=== PATIENT | male | born 1970 | race Caucasian/White ===

== ENCOUNTER 2016-12-26 14:33 | Emergency (ER) | payer MEDICAID ==
[2016-12-26] MEDS ORDERED: NAPROXEN 250 MG TABLET PO ONE (16:03)
--- NOTE | 2016-12-26 16:05 | ER Document Report ---
HPI - HPI Patient complains to provider of: wrist pain, leg wound Onset: Other - wrist x 4 days, leg wound x 1 month Onset/Duration: Persistent Quality of pain: Stabbing Pain Level: 4 Context: Patient presents complaining of bilateral wrist pain for the past 4 days that he states is similar to when he has had problems with carpal tunnel in the past. Patient denies any wrist injury. Patient also states that he cut his left lower extremity after a board bounce back hitting him in the leg one month ago. Patient states he has been cleaning the wound with peroxide and dressing it with Neosporin. Patient states that the wound has been slow to heal. Patient denies any fever or history of diabetes. Associated Symptoms: Other - wrist pain. denies: Fever Exacerbated by: Movement Relieved by: Denies Similar symptoms previously: Yes - carpal tunnel Recently seen / treated by doctor: No - ROS ROS below otherwise negative: Yes Systems Reviewed and Negative: Yes All other systems reviewed and negative - CONSTITUTIONAL Constitutional: DENIES: Fever, Chills - NEURO Neurology: DENIES: Weakness - MUSCULOSKELETAL Musculoskeletal: REPORTS: Extremity pain - bilat wrist - DERM Skin Color: Normal Notes: wound to left leg Past Medical History - General Information source: Patient - Social History Smoking Status: Current Every Day Smoker Frequency of alcohol use: None Drug Abuse: None 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 IN LAST 30 DAYS: No - HEENT HEENT: Atraumatic - NECK Neck: Normal Inspection - RESPIRATORY Respiratory: Breath Sounds Normal, No Respiratory Distress - CARDIOVASCULAR Cardiovascular: Regular Rate, Regular Rhythm, No Murmur Pulses: Normal: Radial - MUSCULOSKELETAL/EXTREMETIES Musculoskeletal/Extremeties: MAEW, FROM, Tender - Bilateral wrist tenderness worse with flexion and extension. Positive Tinel sign. Pt able to make okay and thumbs up gestures without difficulty. - NEURO Level of Consciousness: Awake, Alert, Appropriate Motor/Sensory: No Motor Deficit - DERM Integumentary: Warm, Dry Adult Front & Back Diagram: 1 - Patient with chronic wound to left lower extremity measuring about 2.5 cm by .5 cm, no surrounding erythema, no concern for cellulitis Course - Re-evaluation Re-evalutation: 12/26/16 16:34 Patient without any signs of infection to the wound to left lower extremity. Suspect that patient's delayed healing is more result of improper wound care involving the cleansing with peroxide. consulted with Dr. Zaldivar regarding patient presentation management, recommend outpatient follow-up with primary care provider and educated patient on proper wound management. Discharge - Discharge Clinical Impression: Hx of carpal tunnel syndrome Wrist pain Qualifiers: Laterality: unspecified laterality Qualified Code(s): M25.539 - Pain in unspecified wrist Leg wound, left Qualifiers: Encounter type: initial encounter Qualified Code(s): S81.802A - Unspecified open wound, left lower leg, initial encounter Instructions: Carpal Tunnel Syndrome ([facility]), Anti-Inflammatory Medication ([facility]) Additional Instructions: Return immediately for any new or worsening symptoms Followup with your primary care provider, call tomorrow to make a followup appointment Follow up with her primary care provider to have your blood pressure reevaluated as it was mildly elevated today. Cleanse your wound with antibacterial soap and water and dressed with bacitracin ointment topically. Do not use peroxide or Neosporin to your wound. Follow-up with the primary care provider to have your blood sugar rechecked as it was mildly elevated today, to be sure you do not have diabetes. wear your wrist braces you have at home to help with wrist discomfort. Avoid repetitive activities. Follow up with orthopedic doctor for further evaluation of wrist pain follow up with the wound clinic for any continued problems with your leg wound Prescriptions: Naproxen [Naprosyn 250 Nmg Tablet] 1 tab PO BID #14 tablet Forms: Return to Work Referrals: ROD LAMBERT, PT [Primary Care Provider] - Follow up tomorrow [facility] [Provider Group] - Follow up as needed [facility] [Provider Group] - Follow up as needed
== END 2016-12-26 17:16 | disposition home or self-care (01) ==
LOC: ER 14:33
DX: M25.531 Pain in right wrist (principal); M25.532 Pain in left wrist; Z87.39 Personal history of other diseases of the musculoskeletal system and connective tissue; Z98.890 Other specified postprocedural states; S81.812A Laceration without foreign body, left lower leg, initial encounter; W20.8XXA Other cause of strike by thrown, projected or falling object, initial encounter; F17.200 Nicotine dependence, unspecified, uncomplicated
CPT/HCPCS: 99283; 82962; J3490